=== PATIENT | male | born 1990 | race Caucasian/White ===

== ENCOUNTER 2021-05-07 01:58 | Emergency (ER) | payer OTHER ==
[~2021-05-07 01:58] MED LIST: PREDNISONE 20MG20 MG PO
[2021-05-07 02:35] LABS: BASOPHIL 0.2 % (0-2); EOSINOPHIL 0.2 % (0-5); HGB 14.3 g/dl (13.2-18.0); LYMPHOCYTE 8.1 % (15-48); MCH 31.5 pg (25.0-31.0); MCHC 34.9 g/dL (32.0-36.0); MCV 90.3 fL (78.0-100.0); MONOCYTE 9.8 % (0-12); MPV 9.7 fL (6.0-9.5); NEUTROPHIL 81.3 % (41-80); NRBC 0; PLT 178 K/uL (150-400); RBC 4.54 M/uL (4.70-6.00); RDW 13.3 % (11.5-14.0); WBC 17.1 K/uL (4.0-10.5)
[2021-05-07 02:52] LABS: ALBUMIN 3.7 g/dL (3.4-5.0); BILIRUBIN - TOTAL 0.5 mg/dL (0.2-1.0); BUN/CREAT RATIO (CALC) 11.3 RATIO; CREATININE 1.15 mg/dL (0.67-1.17); GLOBULIN (CALCULATION) 3.5 g/dL; POTASSIUM 3.4 mmol/L (3.5-5.1); TOTAL PROTEIN 7.2 g/dL (6.4-8.2)
[2021-05-07 05:01] LABS: BILIRUBIN NEGATIVE (NEGATIVE); BLOOD 3+ Ery/uL (NEGATIVE); CLARITY CLEAR (CLEAR); COLOR YELLOW (YELLOW); GLUCOSE (U) NORMAL (NORMAL); LEUKOCYTES NEGATIVE Leu/uL (NEGATIVE); NITRITE NEGATIVE (NEGATIVE); PROTEIN TRACE (LOW) mg/dL (NEGATIVE); SPECIFIC GRAVITY 1.025 (1.001-1.030); UROBILINOGEN 0.2 mg/dL (0.2-1.0)
[2021-05-07 05:08] LABS: URINARY RBC 20-50; URINARY WBC RARE
[2021-05-07] MEDS ORDERED: ONDANSETRON ODT4 MG PO ×2 (05:15→05:21)
[2021-05-07] MEDS ORDERED: NAPROSYN500 MG PO (05:15)
[2021-05-07] MEDS ORDERED: NORCO 5-325 TA1 EACH PO ×2 (05:15→05:21)
[2021-05-07] MEDS ORDERED: FLOMAX0.4 MG PO (05:15)
[2021-05-07] MEDS ORDERED: FLOMAX 0.4 MG0.4 MG PO (05:21)
[2021-05-07] MEDS ORDERED: NAPROXEN500 MG PO (05:21)
== END 2021-05-07 05:40 | disposition home or self-care (01) ==
LOC: FER 01:58
PROVIDERS: Emergency Medicine
DX: N13.2 Hydronephrosis with renal and ureteral calculous obstruction (principal); N50.812 Left testicular pain; F17.210 Nicotine dependence, cigarettes, uncomplicated
CPT/HCPCS: 36415; 80053; 81001; 85025; J1170; J1885; J2405; J7030

== ENCOUNTER 2022-05-27 18:14 | Emergency (ER) | payer OTHER ==
[~2022-05-27 18:14] MED LIST changes: +FLOMAX 0.4 MG0.4 MG PO; +FLOMAX0.4 MG PO; +NAPROSYN500 MG PO; +NAPROXEN500 MG PO; +NORCO 5-325 TA1 EACH PO; +ONDANSETRON ODT4 MG PO
[2022-05-27] MEDS ORDERED: PREDNISONE 20MG20 MG PO (19:41)
[2022-05-27] MEDS ORDERED: NAPROXEN500 MG PO (19:41)
[2022-05-27] MEDS ORDERED: BACLOFEN 10MG T10 MG PO (19:41)
== END 2022-05-27 20:16 | disposition home or self-care (01) ==
LOC: FER 18:14
DX: S39.012A Strain of muscle, fascia and tendon of lower back, initial encounter (principal); F17.210 Nicotine dependence, cigarettes, uncomplicated; Z28.310 Unvaccinated for COVID-19
CPT/HCPCS: 72100; 96372; J1100; J1885